=== PATIENT | male | born 1940 | race African-American/Black ===

== ENCOUNTER 2019-03-25 12:35 | Emergency (ER) | payer OTHER ==
[2019-03-25 12:45] VITALS: BMI 31.1
--- NOTE | 2019-03-25 12:47 | PDOC ---
History of Present Illness - General Chief Complaint: Pain Stated Complaint: PASSED OUT/VOMITING Time Seen by Provider: 03/25/19 12:45 History Source: Patient Exam Limitations: No Limitations - History of Present Illness Initial Comments: 03/25/19 12:47 Prabhu Uribe 78M with PMH epilepsy on lacosamide, CAD s/p 3x stents, HTN, CKD , presenting with one episode of vomiting in the context of lower back pain. Patient reports that he pulled a muscle in his back a few weeks ago playing golf , went to see his PMD who recommended stretching exercises and back rest. Today was attending his grandson's basketball game when he felt worsening lower back pain, went to sit in the car and had one episode of vomiting accompanied by generalized abdominal pain. Denies chest pain, SOB, fever, cough, dizziness, constipation/diarrhea. Denies any urinary symptoms, has no dysuria, burning, hematuria, denies unilateral flank pain. Has seizure history, per son has GTC when he does not take meds, has been taking meds every day and today's episode is not his typical seizure. Reports poor PO intake for years, no nausea or poor ability to swallow, just not hungry. Per son, last time patient had symptoms like this and was not feeling well, his potassium level was too low. No PMH DM No PSH other than cardiac stents Denies recent alcohol/tobacco/drug use Past History - Past Medical History Allergies/Adverse Reactions: Allergies Allergy/AdvReac Type Severity Reaction Status Date / Time Penicillins Allergy Verified 03/25/19 12:42 Cardiac Disorders: Yes (CAD) COPD: No HTN: Yes Seizures: Yes - Surgical History Cardiac Surgery: Yes (Bipass x3, 2 stents) - Psycho Social/Smoking Cessation Hx Smoking History: Never smoked Hx Alcohol Use: No Drug/Substance Use Hx: No Review of Systems - Review of Systems Able to Perform ROS?: Yes Constitutional: Yes: Loss of Appetite. No: Diaphoresis, Fever, Weakness HEENTM: No: Blurred Vision, Recent change in vision, Hearing Loss, Difficulty Swallowing Respiratory: No: Cough, Shortness of Breath Cardiac (ROS): No: Chest Pain, Lightheadedness, Palpitations, Syncope, Chest Tightness ABD/GI: Yes: Vomiting. No: Constipated, Diarrhea, Nausea : No: Burning, Dysuria, Discharge, Frequency, Flank Pain, Hematuria, Incontinence Musculoskeletal: Yes: Back Pain. No: Muscle Weakness Integumentary: No: Symptoms Reported Neurological: No: Symptoms reported Endocrine: No: Symptoms Reported Hematologic/Lymphatic: No: Symptoms Reported All Other Systems: Reviewed and Negative *Physical Exam - Vital Signs Last Vital Signs Temp Pulse Resp BP Pulse Ox 97.3 F L 50 L 20 105/49 L 95 03/25/19 12:43 03/25/19 12:43 03/25/19 12:43 03/25/19 12:43 03/25/19 12:43 - Physical Exam General Appearance: Yes: Nourished, Appropriately Dressed. No: Apparent Distress HEENT: positive: EOMI, [place], Normal Voice, Symmetrical, Pharynx Normal. negative: Scleral Icterus (R), Scleral Icterus (L), Muffled/Hoarse voice, Pharyngeal Erythema, Tonsillar Exudate, Tonsillar Erythema Neck: positive: Trachea midline, Normal Thyroid, Supple. negative: Tender, Lymphadenopathy (R), Lymphadenopathy (L) Respiratory/Chest: positive: Lungs Clear, Normal Breath Sounds. negative: Chest Tender, Respiratory Distress, Accessory Muscle Use, Crackles, Rales, Rhonchi Cardiovascular: positive: Regular Rhythm, Regular Rate. negative: Edema, Murmur Gastrointestinal/Abdominal: positive: Normal Bowel Sounds, Flat, Soft, Protuberent. negative: Tender, Organomegaly, Guarding, Rebound Musculoskeletal: positive: Normal Inspection. negative: CVA Tenderness, Vertebral Tenderness Extremity: positive: Normal Capillary Refill, Normal Inspection, Normal Range of Motion. negative: Tender, Coldness, Cyanosis Integumentary: positive: Normal Color, Dry, Warm Neurologic: positive: Fully Oriented, Alert, Normal Mood/Affect, Normal Response , Motor Strength 5/5, Other (no saddle anesthesia, motor 5/5 all extremities, sensation intact to LT all extremities, gait intact, observed stading up from supine and stretching his legs without issue). 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 Patient presentation is unusual for vomiting and lower back pain. Ddx includes atypical WI, AAA, cauda equina, conus medullaris, DKA, renal calculus/pyelo, pancreatitis, electrolyte abnormality. No abd tenderness on exam, but significant PMH is concerning for a severe pathology. No evidence of neurological deficits concerning for spinal fracture/ radiculopathy. Will evaluate with: CMP CBC CP ECG UA/UC Mag Giving 1L NS, 4mg Zofran, and 1000mg Ofrimev for back pain. ECG shows afib with HR 43, QTc 385. Patient has no other history of Afib, new findings requires anticoagulation management in the future. 03/25/19 17:[address] scan uploading and radiology read. Patient updated about status of evaluation. CBC does not show anemia or infection. CMP shows Cr. 2.9, eGFR 22. 03/25/19 18:30 CT abdomen IMPRESSION: 3 cm infrarenal distal abdominal aortic aneurysm with displaced calcifications raising possibility for the presence of dissection. Recommend follow-up with IV contrast. Cholelithiasis without inflammation. No renal stones or evidence of obstructive uropathy. Appendix is normal. Colonic diverticulosis without diverticulitis. Possibility of dissection concerning. CT with contrast relatively contraindicated given Cr 2.9 and eGFR 22. Patient may need transfer to higher level of care for dissection. Patient also has new finding of Afib that requires anticoagulation, rate control difficult due to baseline bradycardia. However, if dissection present, AC contraindicated. 03/25/19 18:49 Spoke to vascular surgeon Dr. El at [facility] regarding opinion on need to transfer vs. need for CTA. Says that a 3cm cyst is a normal sized aorta whether or not there are calcifications present, does not recommend CTA, would not do anything does not accept to [facility]. Says that back pain and syncope is unrelated to the aortic cyst. 03/25/19 19:[address] San with vascular surgery. Says that a 3cm cyst is a normal sized aorta, and that the back pain is unrelated to the cyst. Would not intervene unless >5.5cm. Does not recommend a follow-up CTA to confirm dissection. Management for a AAA involves BP management. If we would like to CTA to r/o dissection, suggests IVF load and CTA after. 03/25/19 19:52 Spoke to [facility], vascular attending Dr. Carballo. Does not believe that his back is related to a dissection, but says the f we are concerned, he is willing to ED-to-ED transfer the patient and have the medicine team evaluate him. Spoke to Dr. Zuniga at [facility] ED, accepts patient for ED-to-ED transfer for evaluation of aortic dissection vs. AAA. 03/25/19 20:42 Spoke to patient and son regarding transfer. Explained the risks and benefits as well as patient autonomy to make decision. Patient has reservations about going to [facility] but accepts transfer. Signed out to [facility] regarding transfer. Discharge - Discharge Information Problems reviewed: Yes Clinical Impression/Diagnosis: Bradycardia Aortic aneurysm Qualifiers: Aortic location: abdominal aorta Presence of rupture: without rupture Qualified Code(s): I71.4 - Abdominal aortic aneurysm, without rupture Syncope Qualifiers: Syncope type: unspecified Qualified Code(s): R55 - Syncope and collapse Vomiting Qualifiers: Vomiting type: unspecified Vomiting Intractability: non-intractable Nausea presence: without nausea Qualified Code(s): R11.11 - Vomiting without nausea Lower back pain Qualifiers: Chronicity: acute Back pain laterality: bilateral Sciatica presence: without sciatica Qualified Code(s): M54.5 - Low back pain Condition: Stable Disposition: TRANSFER ACUTE CARE/OTHER HOSP - Admission No - Follow up/Referral Referrals: Clifton Montemayor [Primary Care Provider] - - Patient Discharge Instructions Patient Printed Discharge Instructions: DI for Syncope in Adults (Fainting) Additional Instructions: Today you were evaluated for nausea, vomiting, and a possible fainting episode. We checked your labs and did not find any abnormalities. Your urine is free from infection. Your CT scan shows: At home, please take your medication each day as prescribed, eat a balanced diet , and drink a lot of fluids. Please follow-up with your primary doctor in the next 3 days for further care. If you experience more fainting, nausea, vomiting, chest pain, shortness of breath, abdominal pain, become unable to walk, or have any other new or concerning symptoms, please return to the closest emergency room. - Post Discharge Activity
[2019-03-25] MEDS ORDERED: SODIUM CHLORIDE 1,000 ML IV STA (13:06)
[2019-03-25 13:37] LABS: BASO % 0.7 % (0-2.0); EOS % 2.1 % (0-4.5); HEMATOCRIT 40.4 % (35.4-49); HEMOGLOBIN 13.2 GM/dL (11.7-16.9); LYMPH % 15.7 % (8-40); MCH 26.5 pg (25.7-33.7); MCHC 32.7 g/dl (32.0-35.9); MEAN CELL VOLUME 80.9 fl (80-96); MEAN PLT VOLUME 9.7 fl (7.5-11.1); MONO % 7.4 % (3.8-10.2); NEUT % 74.1 % (42.8-82.8); PLATELET COUNT 138 K/MM3 (134-434); RBC 4.99 M/mm3 (4.00-5.60); RDW 15.6 % (11.9-15.9)
[2019-03-25] MEDS ORDERED: ONDANSETRON 4 MG/2 ML VIAL IVPUSH ONE (13:37)
[2019-03-25] MEDS ORDERED: ONDANSETRON 4 MG/2 ML VIAL ONE (13:45)
[2019-03-25 14:06] LABS: MAGNESIUM 2.4 mg/dL (1.8-2.4)
[2019-03-25 14:59] LABS: ALBUMIN 3.9 g/dl (3.4-5.0); ALK PHOS 101 U/L (45-117); ANION GAP 6 MMOL/L (8-16); BILIRUBIN,TOTAL 0.4 mg/dL (0.2-1); BLOOD UREA NITROGEN 35.8 mg/dL (7-18); CALCIUM 8.1 mg/dL (8.5-10.1); CHLORIDE 107 mmol/L (98-107); CO2 29 mmol/L (21-32); CREATININE 2.9 mg/dL (0.55-1.3); GLUCOSE,RANDOM 136 mg/dL (74-106); SGOT/AST 16 U/L (15-37); SGPT/ALT 17 U/L (13-61); SODIUM 142 mmol/L (136-145); TOT PROT 7.4 g/dl (6.4-8.2)
--- NOTE | 2019-03-25 15:26 | PDOC ---
Documentation entered by Natalia Bobby SCRIBE, acting as scribe for Yenifer Puente MD. Yenifer Puente MD: This documentation has been prepared by the petraibe, Natalia Bobby SCRIBE, under my direction and personally reviewed by me in its entirety. I confirm that the documentation accurately reflects all work, treatment, procedures, and medical decision making performed by me. Attending Attestation - Resident Resident Name: ElisechecoRanjithBrian - [facility] HPI: 03/25/19 14:13 The patient is a 78-year-old male with a past medical history significant for epilepsy, CAD s/p stents, HTN, CKD, who presents to the emergency department with lower back pain. The patient reports he was at his grandsons basketball game when he had an onset of lower back pain. The patient reports he went to sit in the car when he had an episode of vomiting, associated with abdominal pain. Denies fever, chills, chest pain, or shortness of breath. - Physicial Exam PE: 03/25/19 14:51 Agree with resident exam. Patient is alert and oriented and in no acute distress. HEENT: normocephalic, atraumatic. CV: rrr no m/r/g Pulm: CTA b/l Abdomen: soft, non tender, non distended without guarding or rebound. Back: no point tenderness. No CVA tenderness. - Medical Decision Making 03/25/19 15:18 Pt presents to the ED complaining of sudden worsening of his subacute back pain. Differential includes musculoskeletal back pain, nephrolithiasis, less likely AAA. Will check labs and CT abdomen pelvis give pain control and reassess.
[2019-03-25 16:01] LABS: PH,URINE 5.5 (5.0-8.0); URINE APPEARANCE CLEAR; URINE BILIRUBIN NEGATIVE (NEGATIVE); URINE COLOR YELLOW; URINE GLUCOSE (UA) NEGATIVE (NEGATIVE); URINE KETONE NEGATIVE (NEGATIVE); URINE LEUK ESTERASE NEGATIVE (NEGATIVE); URINE NITRITE NEGATIVE (NEGATIVE); URINE PROTEIN NEGATIVE (NEGATIVE); URINE UROBILINOGEN 0.2 mg/dL (0.2-1.0)
--- NOTE | 2019-03-25 20:55 | PDOC ---
*Physical Exam - Vital Signs Last Vital Signs Temp Pulse Resp BP Pulse Ox 97.9 F 48 L 25 H 142/70 94 L 03/25/19 17:50 03/25/19 19:09 03/25/19 19:09 03/25/19 19:09 03/25/19 19:09 ED Treatment Course - LABORATORY CBC & Chemistry Diagram: 03/25/19 13:28 03/25/19 13:28 - ADDITIONAL ORDERS Additional order review: Laboratory Results 03/25/19 03/25/19 03/25/19 16:55 15:45 13:28 Sodium Potassium Chloride Carbon Dioxide Anion Gap BUN Creatinine Est GFR (CKD-EPI)AfAm Est GFR (CKD-EPI)NonAf Random Glucose Calcium Magnesium 2.4 Total Bilirubin AST ALT Alkaline Phosphatase Creatine Kinase Troponin I < 0.02 Total Protein Albumin Lipase 217 Urine Color Yellow Urine Appearance Clear Urine pH 5.5 Ur Specific [place] 1.018 Urine Protein Negative Urine Glucose (UA) Negative Urine Ketones Negative Urine Blood Negative Urine Nitrite Negative Urine Bilirubin Negative Urine Urobilinogen 0.2 Ur Leukocyte Esterase Negative 03/25/19 13:28 Sodium 142 Potassium 4.0 Chloride 107 Carbon Dioxide 29 Anion Gap 6 L BUN 35.8 H Creatinine 2.9 H Est GFR (CKD-EPI)AfAm 22.80 Est GFR (CKD-EPI)NonAf 19.67 Random Glucose 136 H Calcium 8.1 L Magnesium Total Bilirubin 0.4 AST 16 ALT 17 Alkaline Phosphatase 101 Creatine Kinase 100 Troponin I < 0.02 Total Protein 7.4 Albumin 3.9 Lipase Urine Color Urine Appearance Urine pH Ur Specific [place] Urine Protein Urine Glucose (UA) Urine Ketones Urine Blood Urine Nitrite Urine Bilirubin Urine Urobilinogen Ur Leukocyte Esterase 03/25/19 13:28 RBC 4.99 MCV 80.9 MCHC 32.7 RDW 15.6 MPV 9.7 Neutrophils % 74.1 Lymphocytes % 15.7 Monocytes % 7.4 Eosinophils % 2.1 Basophils % 0.7 - Medications Given in the ED: ED Medications Discontinued Medications Generic Name Dose Route Start Last Admin Trade Name Freq PRN Reason Stop Dose Admin Sodium Chloride 1,000 mls @ 1,000 mls/hr 03/25/19 13:06 03/25/19 13:30 Normal Saline - IV 03/25/19 14:05 1,000 mls/hr ASDIR STA Administration Ondansetron HCl 4 mg 03/25/19 13:37 03/25/19 13:50 Zofran Injection IVPUSH 03/25/19 13:38 4 mg NOW ONE Administration Medical Decision Making - Critical Care Time Total Critical Care Time (minutes): 60 Critical Care Statement: The care of this patient involved high complexity decision making to prevent further life threatening deterioration of the patient 's condition and/or to evaluate & treat vital organ system(s) failure or risk of failure. - Medical Decision Making 03/25/19 20:40 This is a 78-year-old male who was signed out to me pending CT of the abdomen and pelvis Patient presented to the ER with back strain Apparently upon arrival patient had complained of abdominal pain, overall seemed unwell. CT: Patient Name: ZACH CONNOLLY THIS IS A PRELIMINARY REPORT FROM [facility] DATE OF SERVICE: 2019-03-25 15:39:04 IMAGES: [id number] EXAM: CT ABDOMEN AND PELVIS WITHOUT CONTRAST REASON FOR EXAM: stone COMPARISON: None FINDINGS: Lower lung peterson are clear. Small hiatal hernia. The stomach collapsed. There are multiple gallstones without surrounding inflammation. Liver, pancreas, spleen and adrenal glands are grossly unremarkable given the limitation of this non contrast exam. No renal stones are seen or evidence of obstructive uropathy. 4.5 cm exophytic cyst arises from the posterior midpole of the right kidney. Mildly atheromatous abdominal aorta with 3.3 center aneurysm of the distal abdominal aorta prior to bifurcation. Peripheral calcification appears displaced centrally concerning for the presence of underlying dissection.. There is no retroperitoneal hemorrhage The appendix is normal. Descending and sigmoid diverticulosis without inflammation. Tiny 2 cm fat-containing umbilical hernia. No evidence of bowel obstruction, ascites, abscess, free air or diverticulitis. Bladder wall appears minimally thickened although the bladder is minimally distended. Superimposed cystitis cannot be excluded if appropriate clinically. Lumbar spine and bony pelvis without fracture or suspicious lesion. Degenerative disc disease and spondylosis with severe spinal stenosis at L4-5. IMPRESSION: 3 cm infrarenal distal abdominal aortic aneurysm with displaced calcifications raising possibility for the presence of dissection. Recommend follow-up with IV contrast. Cholelithiasis without inflammation. No renal stones or evidence of obstructive uropathy. Appendix is normal. Colonic diverticulosis without diverticulitis. 03/25/19 20:41 Patient is EKG: A. fib/a flutter, rate of 46 bpm left axis deviation, no ST elevation or depression This is new onset atrial flutter Patient until this point has not been anticoagulated At this point would not anticoagulate until aortic status is clarified Call placed to [place] They refused to accept this patient because the diameter of the aorta was only 3 cm Call placed to [facility] They will accept this patient Recommend imaging at their facility Would not initiate anticoagulants and at this point Clinical impression: Possible aortic dissection New onset A. fib/flutter Discharge - Discharge Information Clinical Impression/Diagnosis: Bradycardia Aortic aneurysm Qualifiers: Aortic location: abdominal aorta Presence of rupture: without rupture Qualified Code(s): I71.4 - Abdominal aortic aneurysm, without rupture Syncope Qualifiers: Syncope type: unspecified Qualified Code(s): R55 - Syncope and collapse Vomiting Qualifiers: Vomiting type: unspecified Vomiting Intractability: non-intractable Nausea presence: without nausea Qualified Code(s): R11.11 - Vomiting without nausea Lower back pain Qualifiers: Chronicity: acute Back pain laterality: bilateral Sciatica presence: without sciatica Qualified Code(s): M54.5 - Low back pain Condition: Stable Disposition: TRANSFER ACUTE CARE/OTHER HOSP - Follow up/Referral Referrals: Clifton Montemayor [Primary Care Provider] - - Patient Discharge Instructions Patient Printed Discharge Instructions: DI for Syncope in Adults (Fainting) Additional Instructions: Today you were evaluated for nausea, vomiting, and a possible fainting episode. We checked your labs and did not find any abnormalities. Your urine is free from infection. Your CT scan shows: At home, please take your medication each day as prescribed, eat a balanced diet , and drink a lot of fluids. Please follow-up with your primary doctor in the next 3 days for further care. If you experience more fainting, nausea, vomiting, chest pain, shortness of breath, abdominal pain, become unable to walk, or have any other new or concerning symptoms, please return to the closest emergency room. - Post Discharge Activity
[2019-03-25 22:33] VITALS: BP 145/75; PULSE 99; TEMP 97.8
--- NOTE | 2019-03-26 10:34 | EKG ---
Test Reason : Blood Pressure : / mmHG Vent. Rate : 043 BPM Atrial Rate : 041 BPM P-R Int : 000 ms QRS Dur : 100 ms QT Int : 456 ms P-R-T Axes : 000 -01 140 degrees QTc Int : 385 ms POOR DATA QUALITY, INTERPRETATION MAY BE ADVERSELY AFFECTED ATRIAL FIBRILLATION WITH SLOW VENTRICULAR RESPONSE WITH A COMPETING JUNCTIONAL PACEMAKER SEPTAL INFARCT , AGE UNDETERMINED ABNORMAL ECG NO PREVIOUS ECGS AVAILABLE Confirmed by MD BABITA, SHANI ([id number]) on 03/26/2019 10:33:44 AM Referred By: Confirmed By:SHANI JC MD
--- NOTE | 2019-03-26 15:31 | EKG ---
Test Reason : Blood Pressure : / mmHG Vent. Rate : 046 BPM Atrial Rate : 049 BPM P-R Int : 000 ms QRS Dur : 100 ms QT Int : 456 ms P-R-T Axes : 000 -34 133 degrees QTc Int : 399 ms POOR DATA QUALITY, INTERPRETATION MAY BE ADVERSELY AFFECTED ATRIAL FIBRILLATION WITH SLOW VENTRICULAR RESPONSE LEFT AXIS DEVIATION LOW VOLTAGE QRS SEPTAL INFARCT (CITED ON OR BEFORE 25-MAR-2019) INFERIOR INFARCT , AGE UNDETERMINED ABNORMAL ECG WHEN COMPARED WITH ECG OF 25-MAR-2019 13:13, QRS AXIS SHIFTED LEFT SERIAL CHANGES OF SEPTAL INFARCT PRESENT Confirmed by MD BABITA, SHANI ([id number]) on 03/26/2019 3:30:41 PM Referred By: Confirmed By:SHANI JC MD
== END 2019-03-25 20:35 | disposition short-term general hospital (02) ==
LOC: JER 12:35
PROC: 3E0337Z Introduction of Electrolytic and Water Balance Substance into Peripheral Vein, Percutaneous Approach (ICD-10-PCS; principal; 2019-03-25)
PROC: 3E033GC Introduction of Other Therapeutic Substance into Peripheral Vein, Percutaneous Approach (ICD-10-PCS; 2019-03-25)
DX: R00.1 Bradycardia, unspecified (principal); I71.4 Abdominal aortic aneurysm, without rupture; R55 Syncope and collapse; I48.91 Unspecified atrial fibrillation; G40.909 Epilepsy, unspecified, not intractable, without status epilepticus; I25.10 Atherosclerotic heart disease of native coronary artery without angina pectoris; I13.10 Hypertensive heart and chronic kidney disease without heart failure, with stage 1 through stage 4 chronic kidney disease, or unspecified chronic kidney disease; N18.9 Chronic kidney disease, unspecified; Z95.5 Presence of coronary angioplasty implant and graft; Z88.0 Allergy status to penicillin
CPT/HCPCS: 36415; 74176-TC; 80053; 81003; 82550; 83690; 83735; 84484; 85025; 87086; 93005; 93010; 96361; 96374; 99284-25; J7030